=== PATIENT | female | born 1985 | race Two or more races ===

== ENCOUNTER 2018-11-24 15:51 | Emergency (ER) | payer OTHER ==
[~2018-11-24] VITALS: Ht 160 cm; Wt 45.4 kg
== END 2018-11-24 19:42 | disposition home or self-care (01) ==
LOC: ER 15:51
DX: R51 Headache (principal)

== ENCOUNTER 2021-08-13 17:41 | Emergency (ER) | payer OTHER ==
[~2021-08-13] VITALS: Ht 154.9 cm; Wt 49.0 kg
== END 2021-08-13 19:32 | disposition home or self-care (01) ==
LOC: ER 17:41
DX: S61.220A Laceration with foreign body of right index finger without damage to nail, initial encounter (principal); W45.8XXA Other foreign body or object entering through skin, initial encounter; Y93.89 Activity, other specified; Y92.89 Other specified places as the place of occurrence of the external cause; Y99.8 Other external cause status

== ENCOUNTER 2024-03-24 10:42 | Outpatient (CLI) | payer OTHER | END 2024-03-24 10:43 | disposition home or self-care (01) | LOC: PRENATAL 10:42 | PROVIDERS: ATTEND Obstetrics & Gynecology Maternal & Fetal Medicine | DX: O36.80X0 Pregnancy with inconclusive fetal viability, not applicable or unspecified (principal); Z36.82 Encounter for antenatal screening for nuchal translucency; O09.529 Supervision of elderly multigravida, unspecified trimester; O34.10 Maternal care for benign tumor of corpus uteri, unspecified trimester; Z3A.13 13 weeks gestation of pregnancy ==

== ENCOUNTER 2024-05-14 15:13 | Outpatient (CLI) | payer OTHER | END 2024-05-14 15:14 | disposition home or self-care (01) | LOC: PRENATAL 15:13 | PROVIDERS: ATTEND Obstetrics & Gynecology Maternal & Fetal Medicine | DX: O44.00 Complete placenta previa NOS or without hemorrhage, unspecified trimester (principal); O09.529 Supervision of elderly multigravida, unspecified trimester; O34.10 Maternal care for benign tumor of corpus uteri, unspecified trimester; Z3A.20 20 weeks gestation of pregnancy ==

== ENCOUNTER 2024-07-28 14:19 | Outpatient (CLI) | payer OTHER | END 2024-07-28 14:20 | disposition home or self-care (01) | LOC: PRENATAL 14:19 | PROVIDERS: ATTEND Obstetrics & Gynecology Maternal & Fetal Medicine | DX: O26.849 Uterine size-date discrepancy, unspecified trimester (principal); O36.8199 Decreased fetal movements, unspecified trimester, other fetus; O09.529 Supervision of elderly multigravida, unspecified trimester; O34.10 Maternal care for benign tumor of corpus uteri, unspecified trimester; O24.419 Gestational diabetes mellitus in pregnancy, unspecified control; Z3A.32 32 weeks gestation of pregnancy ==

== ENCOUNTER 2024-08-26 08:57 | Outpatient (CLI) | payer OTHER | END 2024-08-26 08:58 | disposition home or self-care (01) | LOC: PRENATAL 08:57 | PROVIDERS: ATTEND Obstetrics & Gynecology Maternal & Fetal Medicine | DX: O26.849 Uterine size-date discrepancy, unspecified trimester (principal); O36.8199 Decreased fetal movements, unspecified trimester, other fetus; O09.529 Supervision of elderly multigravida, unspecified trimester; O34.10 Maternal care for benign tumor of corpus uteri, unspecified trimester; O24.419 Gestational diabetes mellitus in pregnancy, unspecified control; Z3A.35 35 weeks gestation of pregnancy ==

== ENCOUNTER 2024-09-15 13:46 | Inpatient (IN) | payer OTHER ==
[2024-09-15 14:09] LABS: HEMATOCRIT 37.2 % (36.0-45.00); HEMOGLOBIN 12.6 g/dL (12.0-15.00); MEAN CELL VOLUME 91.5 fL (80.00-100.00); MEAN CORPUSCULAR HEMOGLOBIN 31.1 pg (27.00-32.0); PLATELET COUNT 229 K/uL (150-450); RED BLOOD COUNT 4.06 M/uL (4.00-6.00); RED CELL DISTRIBUTION WIDTH 15.7 % (11.5-14.5)
[2024-09-15 14:09] LABS: PH,URINE 6.5 (5.0-8.0); URINE APPEARANCE Clear; URINE BILIRRUBIN Negative (NEGATIVE); URINE BLOOD Negative; URINE COLOR Yellow; URINE GLUCOSE Negative (NEGATIVE); URINE KETONE Negative (NEGATIVE); URINE LEUKOCYTE Small; URINE NITRATE Negative; URINE PROTEIN Negative (NEGATIVE); URINE UROBILINOGEN 0.2 E.U./dl
[2024-09-15 14:10] LABS: URINE BACTERIA 882.1 uL (0.0-1933); URINE EPITHELIAL CELLS 9.3 uL (0.0-38.8); URINE WBC 9.1 uL (0.0-23.2)
[2024-09-15 14:13] LABS: URINE RBC 1.4 uL (0.0-20.8)
[2024-09-15 14:41] LABS: INR 0.94; PARTIAL THROMBOPLASTIN TIME 27.3 SECONDS (22.0-34.0); PROTHROMBIN TIME 10.3 SECONDS (9.0-11.5)
[2024-09-22] MEDS ORDERED: CEFAZOLIN SODIUM 1,000 MG VIAL ONE (12:34)
[2024-09-22] MEDS ORDERED: ERYTHROMYCIN BASE OPHT 1GM EACH TUBE OP ONE (14:14)
[2024-09-22] MEDS ORDERED: OXYTOCIN 10 UNITS/ML VIAL ONE (14:14)
[2024-09-23] MEDS ORDERED: FAMOTIDINE/PF 20 MG/2 ML VIAL IV ONE (00:59)
[2024-09-23 06:54] LABS: ABG PH 7.252 (7.35-7.45); ABG PO2 20.8 mmHg (80-100); ABG pCO2 48.7 mmHg (35-45); BASE EXCESS -6.4 mmol/l; SaO2 24.4 %; Tco2 22.5 mmol/l; o2 21 %
[2024-09-23 06:55] LABS: puncture site RADIAL RIGHT
[2024-09-23 06:56] LABS: mode ROOM AIR
[2024-09-23 07:10] LABS: HEMATOCRIT 30.5 % (36.0-45.00); HEMOGLOBIN 10.7 g/dL (12.0-15.00); MEAN CELL VOLUME 90.4 fL (80.00-100.00); MEAN CORPUSCULAR HEMOGLOBIN 31.6 pg (27.00-32.0); MEAN CORPUSCULAR HGB CONC 34.9 g/dl (32.0-36.0); PLATELET COUNT 178 K/uL (150-450); RED BLOOD COUNT 3.38 M/uL (4.00-6.00); RED CELL DISTRIBUTION WIDTH 14.6 % (11.5-14.5)
[2024-09-23] MEDS ORDERED: OxyCODONE HCL 5 MG TABLET (ROXICODONE) PO SCH (14:00)
[2024-09-23] MEDS ORDERED: PNV,CALCIUM 72/IRON/FOLIC ACID 1 TAB TABLET PO NR (14:00)
[2024-09-23 16:22] VITALS: BP 108/75
[2024-09-23] MEDS ORDERED: SIMETHICONE 125 MG CAPSULE PO SCH (17:00)
[2024-09-23] MEDS ORDERED: DOCUSATE SODIUM 100MG CAP PO SCH (21:00)
[2024-09-24] VITALS: BP 107/70
[2024-09-24] MEDS ORDERED: PNV,CALCIUM 72/IRON/FOLIC ACID 1 TAB TABLET PO SCH (09:00)
[2024-09-24 09:24] VITALS: BP 103/65
[2024-09-24 16:13] VITALS: BP 101/72
[2024-09-25 00:46] VITALS: BP 96/56
[2024-09-25 04:48] VITALS: BP 97/60
[2024-09-25 09:19] VITALS: BP 113/75
== END 2024-09-25 16:38 | disposition home or self-care (01) | DRG 788 ==
LOC: OB/GYN 09-22 07:45 → O/R 09-22 07:45 → OB/GYN 09-22 12:43
PROVIDERS: ADMIT Obstetrics & Gynecology; ATTEND Obstetrics & Gynecology
PROC: 10D00Z1 Extraction of Products of Conception, Low, Open Approach (ICD-10-PCS; principal; 2024-09-22)
PROC: 4A1HXCZ Monitoring of Products of Conception, Cardiac Rate, External Approach (ICD-10-PCS; 2024-09-22)
DX: O34.29 Maternal care due to uterine scar from other previous surgery (principal); Z3A.39 39 weeks gestation of pregnancy; Z37.0 Single live birth